=== PATIENT | female | born 1990 | race Caucasian/White ===

== ENCOUNTER 2018-01-10 07:12 | Emergency (ER) | payer OTHER, SELFPAY ==
[2018-01-10 07:20] VITALS: BP 130/70; PULSE 77; RESP 16; TEMP 36.5; O2SAT 98
--- NOTE | 2018-01-10 07:37 | W.ED.GENAD ---
Discharge Plan Disposition Patient Disposition: HOME Condition: Good Discharge Details Chief Complaint: DentalOral Clinical Impression: Aphthous stomatitis Primary Care Provider: Jeff Ruelas ED Provider: Roe Germain [place] Meds and New Rx's Prescriptions: New fluconazole [Diflucan] 100 mg tablet 100 mg PO DAILY Qty: 14 RF: 0 prednisone 10 mg tablet See Label Instructions .ROUTE .COMPLEX Qty: 21 RF: 0 Continue ibuprofen 200 MG tablet 600 mg PO TID PRNRF: 0 norgestimate-ethinyl estradiol [Tri-Sprintec (28)] 1 EACH tablet 1 tab PO DAILY RF: 0 Discharge Instructions Additional Instructions: Medication as prescribed. May dab viscous lidocaine on sores to help with mouth pain. May use Tylenol or Motrin for pain as well. Follow-up with primary care in the next few days if not getting better. Return to ED if inability to swallow, difficulty breathing, high fever, other concerns Referrals: Jeff Ruelas [Primary Care Provider] - Medical Decision Making Patient with recurrent aphthous ulcers involving the lips, gums and tongue. Everything is anterior. We will go ahead and start prednisone as this has worked up previously. We will also start her on Diflucan to help prevent thrush. We will give viscous lidocaine for the first couple of days to help with pain. Tylenol or Motrin as needed for pain. Follow-up with primary care in the next few days if not better. Return to ED if worse. HPI General Mode of arrival: ambulatory. Date/Time Provider Initiated Documentation: 01/10/18 07:27. Limitations to Documentation: no limitations. Information obtained by: patient. HPI Narrative: Patient presents to the ED for evaluation of mouth sores. Patient has had these previously. It is unclear why they occur so frequently. She has been seen at [facility]. Typically the only thing that works is steroids. She then has to take Diflucan as well because she develops thrush. This current round of sores started a couple of days ago. She has no difficulty or pain in the posterior oropharynx; everything is in the lips gums and tongue. She denies any fever. She denies any difficulty breathing. She is otherwise well with no significant past medical history. Related Data Home Medications Medication Instructions Recorded Confirmed ibuprofen 600 mg PO TID PRN 10/02/16 01/10/18 norgestimate-ethinyl estradiol 1 tab PO DAILY 10/02/16 01/10/18 [Tri-Sprintec (28)] fluconazole [Diflucan] 100 mg PO DAILY #14 tab 01/10/18 prednisone See Label Instructions .ROUTE 01/10/18 .COMPLEX #21 tab Previous Rx's Medication Instructions Recorded fluconazole [Diflucan] 100 mg PO DAILY #14 tab 01/10/18 prednisone See Label Instructions .ROUTE 01/10/18 .COMPLEX #21 tab Allergies Allergy/AdvReac Type Severity Reaction Status Date / Time codeine AdvReac Intermediate Nausea Unverified 01/10/18 07:25 General Stated Complaint: DentalOral CRISTIANO: 4 Review of Systems Constitutional Denies chills, Denies fever(s), Denies headache(s) and Denies malaise Eyes Denies change in vision, Denies eye discharge, Denies irritation and Denies eye pain ENT Denies dental pain, Denies otalgia, Denies facial pain, Denies headache(s), Reports lip swelling, Reports mouth lesions, Reports mouth pain, Denies nasal congestion, Denies nasal discharge, Denies neck pain, Denies odynophagia, Denies sinus pressure, Denies sore throat and Denies throat swelling Cardiovascular Denies dyspnea Respiratory Denies cough and Denies dyspnea Gastrointestinal Denies odynophagia Musculoskeletal Denies neck pain Neurologic Denies headache(s) Allergic/Immunologic Reports lip swelling and Denies throat swelling [facility] Social History Smoking/Tobacco Use Status: Current every day Exam Const General: cooperative, healthy appearing and comfortable Orientation: alert and oriented x3 [facility] Head: normocephalic and atraumatic Ears: external ears normal General nose exam: external nose normal and no nasal discharge Face and sinus: normal facial exam Mouth: moist mucous membranes, oral mucosa abnormal ulceration and tongue abnormal ulcerated Throat: posterior oropharynx normal Eyes Conjunctivae: conjunctivae normal Sclera: sclerae normal Pupils: PERRL EOM: EOM intact bilaterally Neck Neck: normal visual inspection, full ROM, trachea midline, supple and lymphadenopathy Neuro General: alert, oriented x3, gait normal, no focal motor deficits and CN's II-XI intact bilaterally Sensory Exam: no sensory deficits noted Course Vital Signs Temperature 97.7 F 01/10/18 07:20 Pulse 77 01/10/18 07:20 Respiratory Rate 16 01/10/18 07:20 Blood Pressure 130/70 01/10/18 07:20 Pulse Oximetry 98 01/10/18 07:20 Temperature 97.7 F 01/10/18 07:20 Temperature Source Temporal Artery Scan 01/10/18 07:20 Pulse 77 01/10/18 07:20 Respiratory Rate 16 01/10/18 07:20 Respiratory Effort Non-Labored 01/10/18 07:23 Blood Pressure 130/70 01/10/18 07:20 Blood Pressure Position Sitting 01/10/18 07:20 Pulse Oximetry 98 01/10/18 07:20 Oxygen Delivery Method Room Air 01/10/18 07:20 Oxygen Flow Rate 0 01/10/18 07:20 Pain Level 8 01/10/18 07:26
[2018-01-10] MEDS: predniSONE 20 MG TAB 60 MG PO (07:39)
--- NOTE | 2018-01-10 07:40 | ED.GENADUL_ITS ---
Discharge Plan Disposition Patient Disposition: HOME Condition: Good Discharge Details Chief Complaint: DentalOral Clinical Impression: Aphthous stomatitis Primary Care Provider: Jeff Ruelas ED Provider: Roe Germain [place] Meds and New Rx's Prescriptions: New fluconazole [Diflucan] 100 mg tablet 100 mg PO DAILY Qty: 14 RF: 0 prednisone 10 mg tablet See Label Instructions .ROUTE .COMPLEX Qty: 21 RF: 0 Continue ibuprofen 200 MG tablet 600 mg PO TID PRNRF: 0 norgestimate-ethinyl estradiol [Tri-Sprintec (28)] 1 EACH tablet 1 tab PO DAILY RF: 0 Discharge Instructions Additional Instructions: Medication as prescribed. May dab viscous lidocaine on sores to help with mouth pain. May use Tylenol or Motrin for pain as well. Follow-up with primary care in the next few days if not getting better. Return to ED if inability to swallow, difficulty breathing, high fever, other concerns Referrals: Jeff Ruelas [Primary Care Provider] - Medical Decision Making Patient with recurrent aphthous ulcers involving the lips, gums and tongue. Everything is anterior. We will go ahead and start prednisone as this has worked up previously. We will also start her on Diflucan to help prevent thrush. We will give viscous lidocaine for the first couple of days to help with pain. Tylenol or Motrin as needed for pain. Follow-up with primary care in the next few days if not better. Return to ED if worse. HPI General Mode of arrival: ambulatory . Date/Time Provider Initiated Documentation: 01/10/18 07:27 . Limitations to Documentation: no limitations . Information obtained by: patient . HPI Narrative: Patient presents to the ED for evaluation of mouth sores. Patient has had these previously. It is unclear why they occur so frequently. She has been seen at [facility]. Typically the only thing that works is steroids. She then has to take Diflucan as well because she develops thrush. This current round of sores started a couple of days ago. She has no difficulty or pain in the posterior oropharynx; everything is in the lips gums and tongue. She denies any fever. She denies any difficulty breathing. She is otherwise well with no significant past medical history. Related Data Home Medications Medication Instructions Recorded Confirmed ibuprofen 600 mg PO TID PRN 10/02/16 01/10/18 norgestimate-ethinyl estradiol 1 tab PO DAILY 10/02/16 01/10/18 [Tri-Sprintec (28)] fluconazole [Diflucan] 100 mg PO DAILY #14 tab 01/10/18 prednisone See Label Instructions .ROUTE 01/10/18 .COMPLEX #21 tab Previous Rx's Medication Instructions Recorded fluconazole [Diflucan] 100 mg PO DAILY #14 tab 01/10/18 prednisone See Label Instructions .ROUTE 01/10/18 .COMPLEX #21 tab Allergies Allergy/AdvReac Type Severity Reaction Status Date / Time codeine AdvReac Intermediate Nausea Unverified 01/10/18 07:25 General Stated Complaint: DentalOral CRISTIANO: 4 Review of Systems Constitutional Denies chills, Denies fever(s), Denies headache(s) and Denies malaise Eyes Denies change in vision, Denies eye discharge, Denies irritation and Denies eye pain ENT Denies dental pain, Denies otalgia, Denies facial pain, Denies headache(s), Reports lip swelling, Reports mouth lesions, Reports mouth pain, Denies nasal congestion, Denies nasal discharge, Denies neck pain, Denies odynophagia, Denies sinus pressure, Denies sore throat and Denies throat swelling Cardiovascular Denies dyspnea Respiratory Denies cough and Denies dyspnea Gastrointestinal Denies odynophagia Musculoskeletal Denies neck pain Neurologic Denies headache(s) Allergic/Immunologic Reports lip swelling and Denies throat swelling [facility] Social History Smoking/Tobacco Use Status: Current every day Exam Const General: cooperative, healthy appearing and comfortable Orientation: alert and oriented x3 [facility] Head: normocephalic and atraumatic Ears: external ears normal General nose exam: external nose normal and no nasal discharge Face and sinus: normal facial exam Mouth: moist mucous membranes, oral mucosa abnormal ulceration and tongue abnormal ulcerated Throat: posterior oropharynx normal Eyes Conjunctivae: conjunctivae normal Sclera: sclerae normal Pupils: PERRL EOM: EOM intact bilaterally Neck Neck: normal visual inspection, full ROM, trachea midline, supple and lymphadenopathy Neuro General: alert, oriented x3, gait normal, no focal motor deficits and CN's II- XI intact bilaterally Sensory Exam: no sensory deficits noted Course Vital Signs Temperature 97.7 F 01/10/18 07:20 Pulse 77 01/10/18 07:20 Respiratory Rate 16 01/10/18 07:20 Blood Pressure 130/70 01/10/18 07:20 Pulse Oximetry 98 01/10/18 07:20 Temperature 97.7 F 01/10/18 07:20 Temperature Source Temporal Artery Scan 01/10/18 07:20 Pulse 77 01/10/18 07:20 Respiratory Rate 16 01/10/18 07:20 Respiratory Effort Non-Labored 01/10/18 07:23 Blood Pressure 130/70 01/10/18 07:20 Blood Pressure Position Sitting 01/10/18 07:20 Pulse Oximetry 98 01/10/18 07:20 Oxygen Delivery Method Room Air 01/10/18 07:20 Oxygen Flow Rate 0 01/10/18 07:20 Pain Level 8 01/10/18 07:26
[2018-01-10] MEDS: Lidocaine 2% Viscous 15 ML CUP PO (07:45)
[2018-01-10] MEDS: Fluconazole 100 MG TAB PO (07:45)
== END 2018-01-10 08:03 | disposition home or self-care (01) ==
PROVIDERS: Emergency Provider Emergency Medicine; PCP Family Medicine
DX: K12.0 Recurrent oral aphthae (principal)
CPT/HCPCS: 99283; J7512

== ENCOUNTER 2021-08-08 03:13 | Outpatient (CLI) | payer OTHER, BC, SELFPAY ==
[2021-08-08 08:55] LABS: HCT 42.8 % (36.0-46.0); HGB 14.6 g/dL (11.2-15.7); MCH 33.7 pg (27.0-33.0); MCHC 34.1 % (32.0-36.0); MCV 98.8 fL (80-95); MPV 8.9 fL (8.0-11.0); Platelet Count 359 10^3/uL (130-400); RBC 4.33 10^6/uL (3.93-5.22); RDW-SD 44.1 fL; WBC 9.95 10^3/uL (4.4-10.8)
[2021-08-08 08:57] LABS: Bilirubin Negative (Negative); Blood Trace-intact (Negative); Clarity Sl Cloudy (Clear); Glucose Negative (Negative); Ketones Negative (Negative); Leukocyte Esterase Negative (Negative); Nitrite Negative (Negative); Specific Gravity >= 1.030 (1.005-1.025); Urobilinogen 0.2 EU/dL (Up TO 0.2)
[2021-08-08 09:03] LABS: Bacteria Rare HPF (Negative); C & S Indicated? No/Sq. Contamination; Casts Negative LPF (Negative); Crystals Negative HPF (Negative); Epithelial Cells Many HPF (Negative); Mucus Trace (Negative); WBC 0-2 HPF (0-5)
[2021-08-08 09:57] LABS: *AMPHETAMINES SCREEN URINE Positive (Negative); *BARBITURATES SCREEN URINE Negative (Negative); *BENZODIAZEPINES SCREEN URINE Negative (Negative); Cannabinoids THC Negative (Negative); Cocaine Screen,Urine Negative (Negative); METHADONE URINE SCREEN Negative (Negative); OPIATES URINE SCREEN Negative (Negative)
[2021-08-08 10:00] LABS: Tricyclic Antidepressants Negative (Negative)
[2021-08-08 10:24] LABS: Vitamin D 25 Total 31.1 ng/mL (30-100)
[2021-08-08 10:28] LABS: HCG Quant, Pregnancy 12286 mIU/mL (1-3)
[2021-08-09 09:49] LABS: Hepatitis B Surface Ag Negative (Negative)
[2021-08-09 10:19] LABS: Hepatitis C Ab w Rflx HCV PCR Negative (Negative)
[2021-08-09 10:28] LABS: HIV-1/2 Ag & Ab Screen Negative (Negative)
[2021-08-09 10:35] LABS: Rubella IgG Ab (UVM) Positive (See Note)
[2021-08-09 15:03] LABS: Chlamydia Result Negative (Negative); GC Result Negative (Negative)
[2021-08-09 20:07] LABS: Syphilis IgG w/Reflex Nonreactive (Nonreactive)
== END 2021-08-08 03:14 | disposition home or self-care (01) ==
LOC: LBO 03:14
PROVIDERS: Visit Provider Family Medicine
DX: N96 Recurrent pregnancy loss (principal); Z34.90 Encounter for supervision of normal pregnancy, unspecified, unspecified trimester
CPT/HCPCS: 36415; 80307; 82306; 85027; 86803; 86850; 86900; 86901; 87340; 87389; 87491; 87591; 81003; 81015; 84702; 85025; 86762; 86765; 86780

== ENCOUNTER 2021-10-13 22:15 | Observation (INO) | payer OTHER, MEDICAID, SELFPAY ==
[2021-10-13 22:31] VITALS: BP 174/137; PULSE 97; RESP 18; TEMP 36.3; O2SAT 99
[2021-10-13 22:50] LABS: Abs Immature Grans 0.02 10^3/uL (0.0-0.06); Absolute Basophil Count 0.04 10^3/uL (0.0-0.2); Absolute Eosinophil Count 0.13 10^3/uL (0.0-0.7); Absolute Lymphocyte Count 3.02 10^3/uL (1.2-3.4); Absolute Monocyte Count 0.91 10^3/uL (0.1-0.8); Absolute Neutrophil Count 5.71 10^3/uL (1.2-6.7); Basophils % 0.4; Eosinophils % 1.3; HCT 36.3 % (36.0-46.0); HGB 12.5 g/dL (11.2-15.7); Immature Grans % 0.2; Lymphocytes % 30.7; MCH 33.7 pg (27.0-33.0); MCHC 34.4 % (32.0-36.0); MCV 98 fL (80-95); MPV 8.9 fL (8.0-11.0); Monocytes % 9.3; Neutrophils % 58.1; Platelet Count 283 10^3/uL (130-400); RBC 3.71 10^6/uL (3.93-5.22); RDW-SD 43.5 fL; WBC 9.83 10^3/uL (4.4-10.8)
[2021-10-13] MEDS: LORazepam 2 MG/ML VIAL 1 MG IVP (22:56)
[2021-10-13] MEDS: Ketorolac 15 MG/ML VIAL IVP (22:58)
[2021-10-13 23:13] LABS: ALT 28 U/L (14-59); AST 28 U/L (15-37); Albumin 3.5 g/dL (3.4-5.0); Alkaline Phosphatase 84 U/L (46-116); Anion Gap 7.5 mmol/L (3-11); BUN 20 mg/dL (7-18); Bilirubin, Total 0.4 mg/dL (0.2-1.0); CO2 27.5 mmol/L (21.0-32.0); CREATININE 0.8 mg/dL (0.55-1.02); Calcium 8.5 mg/dL (8.5-10.1); Chloride 103 mmol/L (98-107); Glucose 91 mg/dL (74-106); HCG Quant, Pregnancy 77 mIU/mL (1-3); Sodium 138 mmol/L (136-145)
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
[2021-10-13] MEDS: ACETAMINOPHEN 1,000 MG/100 ML BTL 400 MG IVPB (23:43)
--- NOTE | 2021-10-13 23:45 | DI.CT_ITS ---
Exam(s) CT ABDOMEN PELVIS W EXAM: CT ABDOMEN PELVIS W CLINICAL HISTORY: recent miscarriage, severe lower abd pain. TECHNIQUE: Imaging Protocol: Axial computed tomography images with coronal and sagittal reformatted images were created and reviewed CONTRAST MATERIAL: Intravenous: Omnipaque 100cc Oral: None COMPARISON: CT RENAL COLIC WO CONTRAST from 10/02/2016 FINDINGS: VISUALIZED LUNG BASES: No nodules nor pleural effusions evident. ABDOMEN: There is no ascites. LIVER: There are no focal hepatic lesions evident . GALLBLADDER/BILIARY: No obvious gallbladder pathology. CBD is not dilated. PANCREAS: No evidence of pancreatic mass nor dilatation of the pancreatic duct. SPLEEN: Spleen is not enlarged. No obvious intrasplenic lesions. Splenic and portal veins are paten t. ADRENALS: There are no significant adrenal masses. KIDNEYS:No cysts evident. No solid renal masses. No calculi nor hydronephrosis.. ABDOMINAL AORTA: Abdominal aorta is not enlarged. LYMPH NODES:There is no retroperitoneal nor paraaortic adenopathy. ABDOMINAL WALL: No evidence of significant anterior abdominal wall nor inguinal hernia. GI: There is no evidence of bowel obstruction, free air, nor abscess. PELVIS: GI: No evidence of appendicitis.No evidence of sigmoid diverticulitis. LYMPH NODES: There is no intrapelvic nor inguinal adenopathy. REPRODUCTIVE: Uterine cavity is distended with fluid, indicating an element of cervical stenosis URINARY BLADDER: No calculi nor obvious masses evident OSSEOUS: No significant osseous lesions. No fractures. IMPRESSION: 1. The main finding here is a large amount of fluid filling the entire endometrial cavity, suggesting presence of cervical stenosis. Recommend gynecology consultation. 2. Mild ileus pattern. No obvious bowel obstruction. No ascites. 3. No evidence of appendicitis. No diverticulitis RADIATION DOSE DELIVERED: 950.27mGy.cm Total DLP DATA REPOSITORY: All CT scans at this facility are submitted to the National Radiology Data Registry (NRDR) Dose Index Registry (DIR) with the [employer] (ACR). RADIATION OPTIMIZATION: All CT scans at this facility use at least one of these dose optimization te chniques: automated exposure control; mA and/or kV adjustment per patient size (includes targeted exa ms where dose is matched to clinical indication); or iterative reconstruction.
[2021-10-13] MEDS: Omnipaque 350 MG/ML 100 ML BTL IJ (23:52)
[2021-10-13] MEDS: Normal Saline Flush 10 ML SYR IVP (23:53)
[2021-10-14] MEDS: MORPHine 4 MG/ML SYR 2 MG IVP ×2 (00:23→01:04)
[2021-10-14] MEDS: Ondansetron 4 MG/2 ML VIAL IVP (00:23)
[2021-10-14 00:25] LABS: Bilirubin Negative (Negative); Blood Moderate (Negative); Clarity Clear (Clear); Glucose Negative (Negative); Ketones Trace mg/dL (Negative); Leukocyte Esterase Negative (Negative); Nitrite Negative (Negative); Specific Gravity 1.025 (1.005-1.025); Urobilinogen 0.2 EU/dL (Up TO 0.2); pH 6.5 (5-8)
[2021-10-14 00:30] VITALS: BP 150/85; PULSE 82; RESP 16; O2SAT 94
[2021-10-14 00:35] LABS: Bacteria Rare HPF (Negative); C & S Indicated? No; Casts Negative LPF (Negative); Crystals Negative HPF (Negative); Epithelial Cells Rare HPF (Negative); Mucus Trace (Negative); WBC 0-2 HPF (0-5)
--- NOTE | 2021-10-14 00:51 | DI.VRAD_ITS ---
PROCEDURE INFORMATION: Exam: CT Abdomen And Pelvis With Contrast Exam date and time: 10/14/2021 12:08 AM Age: 31 years old Clinical indication: Abdominal pain; Localized; Patient HX: Severe lower abd pain, recent miscarriage TECHNIQUE: Imaging protocol: Computed tomography of the abdomen and pelvis with contrast. Radiation optimization: All CT scans at this facility use at least one of these dose optimization techniques: automated exposure control; mA and/or kV adjustment per patient size (includes targeted exams where dose is matched to clinical indication); or iterative reconstruction. Contrast material: OMNIPAQUE 350; Contrast volume: 100 ml; Contrast route: IV; COMPARISON: CT RENAL COLIC WO CONTRAST 10/02/2016 10:29 PM FINDINGS: Liver: Normal. No mass. Gallbladder and bile ducts: Normal. No calcified stones. No ductal dilation. Pancreas: Normal. No ductal dilation. Spleen: Normal. No splenomegaly. Adrenal glands: Normal. No mass. Kidneys and ureters: Normal. No hydronephrosis. Stomach and bowel: There are multiple prominent nondilated air and fluid filled loops of small bowel without transition point which could represent mild ileus. There is no evidence for bowel inflammation. Appendix: The appendix is well visualized and appears normal. Intraperitoneal space: Unremarkable. No free air. No significant fluid collection. Vasculature: Unremarkable. No abdominal aortic aneurysm. Lymph nodes: Unremarkable. No enlarged lymph nodes. Urinary bladder: Unremarkable as visualized. Reproductive: There is a large amount of fluid within the endometrial cavity from the upper to the lower uterine segment, new since prior study, with the fluid demonstrating simple fluid attenuation. There appears to be some degree of thinning of the myometrium within the lower uterine segment, suggesting that this fluid is under pressure. The fluid measures 3.8 cm in transverse dimension, 9.3 in anterior posterior dimension and 3.2 cm in craniocaudal dimension. Findings suggest a small amount of enhancing tissue along the inferior edge of the endometrial fluid in the upper uterine segment, as seen on sagittal image 52, series 7, which could represent retained products of conception. There is a 1.9 x 2.3 cm cystic left adnexal lesion, likely a dominant ovarian follicle. Bones/joints: Unremarkable. No acute fracture. Soft tissues: Unremarkable. IMPRESSION: 1. Large amount of fluid within the endometrial cavity with associated thinning of the uterine myometrium in the lower uterine segment. There is also a small amount of enhancing tissue along the edge of the endometrial fluid in the upper uterine segment which could represent retained products of conception. Overall, findings suggest cervical stenosis in the setting of recent miscarriage. Recommend emergent consultation with gynecology service. 2. Multiple prominent nondilated loops of small bowel without transition point suggesting ileus. Findings were discussed with Wojciech Chance at 10/14/2021 12:46 AM EDT. Dictated and Authenticated by: Job Stephenson MD. Ordering:P.DISST Robson Jeffrey MD
[2021-10-14 01:06] LABS: Source Nasal/Nares
[2021-10-14 01:59] LABS: COVID-19 PCR Negative (Negative)
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
[2021-10-14 02:04] VITALS: BP 151/95; PULSE 79; RESP 16; O2SAT 95
[2021-10-14] MEDS: DOXYCYCLINE 100 MG in Normal Saline 100 ML IVPB (02:04)
[2021-10-14] MEDS: MORPHine 10 MG/ML VIAL 2 MG IVP (02:15)
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
[2021-10-14 02:36] VITALS: BMI 28.8
[2021-10-14] MEDS: Lactated Ringers 1,000 ML 30 ML IV (02:46)
--- NOTE | 2021-10-14 03:08 | POC_PTH ---
PATIENT: Eleonora Robertson LOC: OBS U#:[id number] AGE/SX: 31/F ROOM: OBS.306 RE10/14/[address]: Debbi Rodriguez DO : 1990 BED: A DIS: 10/14/2021 SPEC #: [id number] RECD: 10/15/21 09:25 STATUS: SOULeighann REQ #: [id number] ALLEN: 10/14/21 03:[address]: Debbi Rodriguez DEPT: Surgical Specimen RECD BY: Ana Luisa Saenz ENTERED: 10/15/21 09:26 SP TYPE: POC OTHR DR: Unknown,Unknown Tissues: 1 - INDUCED Procedures: GROSS AND MICRO LEVEL 4 Comments: [id number]
--- NOTE | 2021-10-14 03:21 | W.PM.OP ---
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 Upon dilation of the cervical, marked blood-tinged fluid spontaneously expelled from the uterus. Small amount of tissue returned from endometrial and endocervical curettage Procedure Description: After full informed consent was obtained, patient was taken the operating suite with an IV running. She was placed in dorsal supine position and general anesthesia administered with ease. She was then placed in the modified dorsolithotomy position and prepped and draped in the usual sterile fashion. Exam under anesthesia revealed a uterus that was approximately 10 to 12 weeks size and freely mobile. Speculum was then inserted and cervical dilated with Thomas dilators to the point that a 7 Macedonian suction catheter could be passed with ease. An Allis clamp was used to stabilize the cervix. With a suction curettage, moderate blood tinged fluid was withdrawn from the uterus. There was also a scant amount of tissue. A gentle sharp curettage of the entire endometrial endocervical canal produced a small amount of tissue, particularly from the lower uterine segment. This will be sent for pathology. A second pass of the suction curette was undertaken and the uterus was then found to be small, involuted, and approximately 6 weeks size. Tenaculum and speculum were both removed and the patient was returned to the dorsal supine position. She awoke from anesthesia with ease. She was taken the postoperative area in stable condition. Complications: None apparent Findings: Blood-tinged fluid collection within the endometrial canal. Scant products of conception particularly in the lower uterine segment Pathology: Products of conception for examination Fluids: Crystalloid per anesthesia EBL: 50 mL
[2021-10-14 03:25] VITALS: BP 110/62; BP 111/68; PULSE 72; PULSE 74; RESP 16; RESP 18
--- NOTE | 2021-10-14 03:32 | W.ANESPOSTOP ---
Postoperative Evaluation Date, Time and Location Date Performed: 10/14/21 Time Performed: 03:32 Patient Location: Obstetrics Vital Signs Most Recent Imported Vital Signs: Most Recent Vital Signs Temp Pulse Resp BP Pulse Ox 36.3 C L 79 16 151/95 H 95 10/13/21 22:31 10/14/21 02:04 10/14/21 02:04 10/14/21 02:04 10/14/21 02:04 Pain Score Most Recent Pain Score: Most Recent Pain Score Pain Level 5 10/14/21 02:47 Assessment Mental Status: Awake (Alert & Oriented to Patient Baseline) Airway and Respiratory Function: Patent airway with normal (patient baseline) respiratory exam Cardiovascular Function: Hemodynamically Stable Hydration Status: Adequately Hydrated Nausea & Vomiting: No Nausea or Vomiting Pain: Pain is tolerable per patient Peripheral Nerve Block: Patient did not receive a nerve block
[2021-10-14 05:00] VITALS: BP 103/56; PULSE 66; RESP 18; TEMP 36.6
[2021-10-14] MEDS: Doxycycline Hyclate 100 MG CAP 200 MG PO (06:20)
== END 2021-10-14 06:30 | disposition home or self-care (01) ==
LOC: ER 10-14 02:40 → OBS 10-14 03:21
PROVIDERS: Admitting Provider Obstetrics & Gynecology; Emergency Provider Emergency Medicine; Visit Provider Obstetrics & Gynecology
PROC: (CPT 59841; principal; 2021-10-14 02:25)
DX: O03.4 Incomplete spontaneous abortion without complication (principal); O43.891 Other placental disorders, first trimester; N96 Recurrent pregnancy loss; N85.7 Hematometra; F90.9 Attention-deficit hyperactivity disorder, unspecified type; F32.A Depression, unspecified; F41.1 Generalized anxiety disorder; F17.210 Nicotine dependence, cigarettes, uncomplicated; Z3A.09 9 weeks gestation of pregnancy
CPT/HCPCS: 59812; 80053; 86850; 86900; 86901; 87635; 88305; 96365; 96367; 96375; 96376; 99285; 74177; 81003; 81015; 84702; 85025; 88304; G0378; J0131; J1100; J1885; J2060; J2270; J2405; J3490

== ENCOUNTER 2021-10-24 18:44 | Outpatient (REF) | payer MEDICAID, SELFPAY ==
[2021-10-28 13:26] LABS: Chlamydia Result Negative (Negative); GC Result Negative (Negative)
== END 2021-10-24 18:45 | disposition home or self-care (01) ==
LOC: LBN 18:44
PROVIDERS: Visit Provider Obstetrics & Gynecology
DX: Z20.2 Contact with and (suspected) exposure to infections with a predominantly sexual mode of transmission (principal)
CPT/HCPCS: 87491; 87591

== ENCOUNTER 2021-12-26 13:49 | Emergency (ER) | payer OTHER, MEDICAID, SELFPAY ==
[2021-12-26] VITALS (37 sets, daily range): BP systolic 115–137; BP diastolic 66–100; PULSE 94–128; RESP 10–27; TEMP 36.9–38.6; O2SAT 95–99
--- NOTE | 2021-12-26 13:45 | RT.EKG_ITS ---
APPROVED REPORT Exam: Resting ECG Reason for Exam: tachycardia,chest pain Patient Location: E HR:103 bpm ECG Measurements Heart Rate 103 AXIS SD 148 P 75 QRSd 73 QRS 52 QT 343 T 48 QTc 449 Conclusion Sinus tachycardia...rate> 99. Sinus. Normal axis. No STEMI. I have reviewed and interpreted ECG and agree with software generated interpretation.
[2021-12-26 14:39] LABS: Abs Immature Grans 0.03 10^3/uL (0.0-0.06); Absolute Basophil Count 0.05 10^3/uL (0.0-0.2); Absolute Eosinophil Count 0.14 10^3/uL (0.0-0.7); Absolute Lymphocyte Count 2.57 10^3/uL (1.2-3.4); Absolute Monocyte Count 0.75 10^3/uL (0.1-0.8); Absolute Neutrophil Count 6.66 10^3/uL (1.2-6.7); Basophils % 0.5; Eosinophils % 1.4; HCT 39.2 % (36.0-46.0); HGB 13.5 g/dL (11.2-15.7); Immature Grans % 0.3; Lymphocytes % 25.2; MCH 33.1 pg (27.0-33.0); MCHC 34.4 % (32.0-36.0); MCV 96 fL (80-95); MPV 8.9 fL (8.0-11.0); Monocytes % 7.4; Neutrophils % 65.2; Platelet Count 327 10^3/uL (130-400); RBC 4.08 10^6/uL (3.93-5.22); RDW 11.1 % (11.7-14.6); RDW-SD 39.4 fL
[2021-12-26 15:04] LABS: ALT 27 U/L (14-59); AST 17 U/L (15-37); Albumin 3.8 g/dL (3.4-5.0); Alkaline Phosphatase 88 U/L (46-116); Anion Gap 7.2 mmol/L (3-11); BUN 15 mg/dL (7-18); Bilirubin, Total 0.3 mg/dL (0.2-1.0); CO2 26.8 mmol/L (21.0-32.0); CREATININE 0.8 mg/dL (0.55-1.02); Chloride 101 mmol/L (98-107); Estimated GFR 100.33 (mL/min/1.73m2); Glucose 77 mg/dL (74-106); Magnesium 1.8 mg/dL (1.8-2.4); Potassium 3.6 mmol/L (3.5-5.1); Sodium 135 mmol/L (136-145); Total Protein 7.6 g/dL (6.4-8.2)
[2021-12-26] MEDS: Normal Saline 1,000 ML 1000 ML IV (15:05)
[2021-12-26] MEDS: Acetaminophen 500 MG TAB 1000 MG PO (15:05)
[2021-12-26 15:06] LABS: Troponin I < 50 ng/L (<or=60)
[2021-12-26 15:12] LABS: Source Nasal/Nares
[2021-12-26 15:42] LABS: COVID-19 PCR Negative (Negative)
--- NOTE | 2021-12-26 15:45 | DI.RAD_ITS ---
Exam(s) XR PORTABLE CHEST AP EXAM: XR PORTABLE CHEST AP CLINICAL HISTORY: chest pain, shortness of breath TECHNIQUE: 2D digital imaging was performed of the chest. One image was obtained. An AP view was ob tained. COMPARISON: CR CHEST 2 VIEWS PA,LAT from 08/12/2014 FINDINGS: MEDIASTINUM: Normal. HEART: Normal. PULMONARY VASCULATURE: Normal. LUNGS: Clear. PLEURAL SPACE: No pleural effusion or pneumothorax. BONE:Within normal limits for the patient's age. OTHER FINDINGS:Normal. IMPRESSION: No acute pulmonary findings. DATA REPOSITORY: RADIATION DOSE DELIVERED:
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
--- NOTE | 2021-12-26 16:00 | RT.EKG_ITS ---
APPROVED REPORT Exam: Resting ECG Reason for Exam: chest pain Patient Location: E HR:96 bpm ECG Measurements Heart Rate 96 AXIS MO 124 P 65 QRSd 79 QRS 45 QT 348 T 43 QTc 441 Conclusion Sinus rhythm...normal P axis, V-rate 60- 99. Sinus. Normal axis. No STEMI. I have reviewed and interpreted ECG and agree with software generated interpretation.
--- NOTE | 2021-12-26 16:10 | ED.PROG_ITS ---
Date of service: 12/26/21 Time of Service: 16:10 Medical Decision Making Care assumed from provider (ANGELA Fletcher) Please see their initial HPI, PE, and documentation. Discussed patient details and case and pending workup and disposition. Patient is hemodynamically stable, and alert and oriented. 31-year-old female presents with tachycardia tachypnea and fever. At the time of signout D-dimer is pending, labs and chest x-ray. Patient is requesting some food. Initial troponin within normal limits. Urinalysis is pending. COVID is negative. D-dimer is 215, sodium 135, initial troponin within normal limits, urinalysis is within normal limits no evidence of UTI. 1706: Informed by field staff manager that patient was complaining of left arm tingling. UDS added onto urinalysis and 0.5 lorazepam ordered. This time we are pending second troponin. 1732: Patient is tearful, I did discuss with her that we are waiting a second troponin. I did relay the results of the largely unremarkable work-up thus far. She verbalizes understanding. She does appear anxious. 1819: Repeat Troponin WNL, Will discharge patient home. This text was generated using [employer] dictation system, please disregard any oddities of phrase or misspellings. Heart rate has improved upon discharge at 96. Discussed follow-up care and strict return instructions, verbalized understanding. Medical Records Medical records reviewed: Yes I reviewed the patient's medical records. Imaging Data Radiologic Study: Imaging: X-Ray Radiologist's impression: CLINICAL HISTORY: chest pain, shortness of breath TECHNIQUE: 2D digital imaging was performed of the chest. One image was obtained. An AP view was obtained. COMPARISON: CR CHEST 2 VIEWS PA,LAT from 08/12/2014 FINDINGS: MEDIASTINUM: Normal. HEART: Normal. PULMONARY VASCULATURE: Normal. LUNGS: Clear. PLEURAL SPACE: No pleural effusion or pneumothorax. BONE:Within normal limits for the patient's age. OTHER FINDINGS:Normal. IMPRESSION: No acute pulmonary findings. Lab Data Lab results reviewed: Yes I reviewed the patient's lab results. Labs: Laboratory Tests Range/Units 12/26/21 12/26/21 12/26/21 14:02 14:02 14:55 WBC (4.4-10.8) 10^3/uL 10.20 RBC (3.93-5.22) 10^6/uL 4.08 Hgb (11.2-15.7) g/dL 13.5 Hct (36.0-46.0) % 39.2 MCV (80-95) fL 96 H MCH (27.0-33.0) pg 33.1 H MCHC (32.0-36.0) % 34.4 RDW (11.7-14.6) % 11.1 L Plt Count (130-400) 10^3/uL 327 MPV (8.0-11.0) fL 8.9 Immature Gran % 0.3 Neutrophils % 65.2 Lymphocytes % 25.2 Monocytes % 7.4 Eosinophils % 1.4 Basophils % 0.5 Nucleated RBC % (0.0-0.3) % 0.0 Absolute Neutrophils (1.2-6.7) 10^3/uL 6.66 Absolute Lymphocytes (1.2-3.4) 10^3/uL 2.57 Absolute Monocytes (0.1-0.8) 10^3/uL 0.75 Absolute Eosinophils (0.0-0.7) 10^3/uL 0.14 Absolute Basophils (0.0-0.2) 10^3/uL 0.05 Sodium (136-145) mmol/L 135 L Potassium (3.5-5.1) mmol/L 3.6 Chloride (98-107) mmol/L 101 Carbon Dioxide (21.0-32.0) mmol/L 26.8 Anion Gap (3-11) mmol/L 7.2 BUN (7-18) mg/dL 15 Creatinine (0.55-1.02) mg/dL 0.8 Est GFR (CKD-EPI 2020) (mL/min/1.73m2) 100.33 Glucose (74-106) mg/dL 77 Calcium (8.5-10.1) mg/dL 9.0 Magnesium (1.8-2.4) mg/dL 1.8 Total Bilirubin (0.2-1.0) mg/dL 0.3 AST (15-37) U/L 17 ALT (14-59) U/L 27 Alkaline Phosphatase (46-116) U/L 88 Troponin I (<or=60) ng/L < 50 Total Protein (6.4-8.2) g/dL 7.6 Albumin (3.4-5.0) g/dL 3.8 COVID-19 Source Nasal/Nares SARS-CoV-2 (PCR) (Negative) Negative Sign Out Sign Out Data: Sign Out Comment: pending ddimer, urinalysis, repeat trop and ekg, fluids tylenol, dispo Last updated by Nerissa Escobar PA at 12/26/21 16:00 Discharge Plan Disposition Patient Disposition: HOME Condition: Stable Discharge Details Clinical Impression: Anterior chest wall pain Primary Care Provider: Unknown,Unknown ED Provider: Hemalatha Hartman Home Meds and New Rx's Prescriptions: Continued Gummy 400 mcg-35 mg -25 mg-5 mg tablet,chewable 1 tab PO DAILY dextroamphetamine-amphetamine [Adderall XR] 30 mg capsule,extended release 24hr 30 mg PO QAM dextroamphetamine-amphetamine [Adderall XR] 20 mg capsule,extended release 24hr 20 mg PO DAILY Rx Instructions: in afternoon metformin 500 mg tablet 500 mg PO BID venlafaxine 150 mg tablet extended release 24 hr 150 mg PO DAILY ibuprofen 800 mg tablet 800 mg PO Q8H PRNQty: 30 1RF Discharge Instructions Instructions: Chest Wall Pain (ED) Additional Instructions: At this time the cardiac work-up is within normal limits. There is no evidence for pneumonia, heart problems or any emergent condition. The labs show a slightly low sodium which we gave you sodium in the IV fluids that he received today. COVID swab is negative. Follow up with primary care provider in 3-5 days. Return to ED sooner if any worsening or concerns. Increase oral fluids. Please take Tylenol or Ibuprofen with food every 4-6 hours as needed for pain and swelling.
[2021-12-26 16:16] LABS: Bilirubin Negative (Negative); Blood Negative (Negative); Clarity Clear (Clear); Glucose Negative (Negative); Ketones Negative (Negative); Leukocyte Esterase Negative (Negative); Nitrite Negative (Negative); Urobilinogen 0.2 EU/dL (Up TO 0.2)
[2021-12-26 16:19] LABS: D-Dimer 215 ng/mlFEU (<500)
[2021-12-26] MEDS: LORazepam 20 MG/10 ML VIAL IVP (17:25)
[2021-12-26 17:47] LABS: Troponin I < 50 ng/L (<or=60)
[2021-12-26 19:04] LABS: *AMPHETAMINES SCREEN URINE Positive (Negative); *BARBITURATES SCREEN URINE Negative (Negative); *BENZODIAZEPINES SCREEN URINE Negative (Negative); Cannabinoids THC Negative (Negative); Cocaine Screen,Urine Negative (Negative); METHADONE URINE SCREEN Negative (Negative); OPIATES URINE SCREEN Negative (Negative)
[2021-12-26 19:11] LABS: Tricyclic Antidepressants Negative (Negative)
== END 2021-12-26 18:40 | disposition home or self-care (01) ==
PROVIDERS: Physician Assistant; Emergency Provider Registered Nurse Emergency
DX: R07.89 Other chest pain (principal); R00.0 Tachycardia, unspecified; R06.82 Tachypnea, not elsewhere classified; R50.9 Fever, unspecified; Z20.822 Contact with and (suspected) exposure to COVID-19; F17.290 Nicotine dependence, other tobacco product, uncomplicated
CPT/HCPCS: 36415; 80053; 80307; 81025; 87635; 93005; 96361; 96374; 99284; 71045; 81003; 83735; 84484; 85025; 85379; 93010; J3490

== ENCOUNTER 2022-04-15 14:46 | Emergency (ER) | payer MEDICAID, SELFPAY ==
[2022-04-15 14:49] VITALS: BP 136/95; PULSE 93; RESP 18; TEMP 36.9; O2SAT 99
[2022-04-15 15:39] LABS: Abs Immature Grans 0.02 10^3/uL (0.0-0.06); Absolute Basophil Count 0.05 10^3/uL (0.0-0.2); Absolute Eosinophil Count 0.14 10^3/uL (0.0-0.7); Absolute Lymphocyte Count 2.46 10^3/uL (1.2-3.4); Absolute Monocyte Count 0.85 10^3/uL (0.1-0.8); Absolute Neutrophil Count 6.96 10^3/uL (1.2-6.7); Basophils % 0.5; Eosinophils % 1.3; HCT 40.4 % (36.0-46.0); HGB 13.6 g/dL (11.2-15.7); Immature Grans % 0.2; Lymphocytes % 23.5; MCHC 33.7 % (32.0-36.0); MCV 95 fL (80-95); MPV 8.7 fL (8.0-11.0); Monocytes % 8.1; Neutrophils % 66.4; Platelet Count 350 10^3/uL (130-400); RBC 4.25 10^6/uL (3.93-5.22); RDW 11.9 % (11.7-14.6); RDW-SD 41.1 fL; WBC 10.48 10^3/uL (4.4-10.8)
[2022-04-15 15:55] LABS: Bilirubin Negative (Negative); Blood Negative (Negative); Clarity Sl Cloudy (Clear); Glucose Negative (Negative); Ketones Negative (Negative); Leukocyte Esterase Negative (Negative); Nitrite Negative (Negative); Specific Gravity >= 1.030 (1.005-1.025); Urobilinogen 0.2 EU/dL (Up TO 0.2); pH 6.5 (5-8)
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
[2022-04-15 15:59] LABS: Salicylate < 2.8 mg/dL (<2.8)
--- NOTE | 2022-04-15 16:00 | DI.CT_ITS ---
Exam(s) CT HEAD WO EXAM: CT HEAD WO CLINICAL HISTORY: New onset hallucinations. TECHNIQUE: Imaging Protocol: Axial computed tomography images with coronal and sagittal reformatted images were created and reviewed COMPARISON: No exams were available for comparison FINDINGS: There are no skull fractures. There is no fluid in the visualized paranasal sinuses. There is no evidence of intracranial hemorrhage, mass effect, or shift of midline structures. There are no extra-axial fluid collections. The ventricles are not enlarged or shifted and there is no blo od within the ventricular system nor within the basal cisterns. IMPRESSION: No acute intracranial findings on this noninfused CT scan of the brain. By myself to ER provider. RADIATION DOSE DELIVERED: 690.64mGy.cm Total DLP DATA REPOSITORY: All CT scans at this facility are submitted to the National Radiology Data Registry (NRDR) Dose Index Registry (DIR) with the [employer] (ACR). RADIATION OPTIMIZATION: All CT scans at this facility use at least one of these dose optimization te chniques: automated exposure control; mA and/or kV adjustment per patient size (includes targeted exa ms where dose is matched to clinical indication); or iterative reconstruction.
[2022-04-15 16:01] LABS: Acetaminophen < 2 ug/mL (10-30)
[2022-04-15 16:04] LABS: ALT 23 U/L (14-59); AST 17 U/L (15-37); Albumin 3.9 g/dL (3.4-5.0); Alkaline Phosphatase 85 U/L (46-116); Anion Gap 9.2 mmol/L (3-11); BUN 17 mg/dL (7-18); Bilirubin, Total 0.3 mg/dL (0.2-1.0); CO2 28.8 mmol/L (21.0-32.0); CREATININE 0.8 mg/dL (0.55-1.02); Calcium 8.9 mg/dL (8.5-10.1); Chloride 102 mmol/L (98-107); Estimated GFR 100.33 (mL/min/1.73m2); Glucose 84 mg/dL (74-106); Potassium 3.9 mmol/L (3.5-5.1); Sodium 140 mmol/L (136-145); Total Protein 7.6 g/dL (6.4-8.2)
[2022-04-15 16:16] LABS: ETHANOL BLOOD < 3.0 mg/dL (<10)
[2022-04-15 16:17] LABS: *AMPHETAMINES SCREEN URINE Positive (Negative); *BARBITURATES SCREEN URINE Negative (Negative); *BENZODIAZEPINES SCREEN URINE Negative (Negative); Cannabinoids THC Negative (Negative); Cocaine Screen,Urine Negative (Negative); METHADONE URINE SCREEN Negative (Negative); OPIATES URINE SCREEN Negative (Negative); Tricyclic Antidepressants Negative (Negative)
--- NOTE | 2022-04-15 16:24 | CMSP_ITS ---
- If Service Date Differs Date of service: 04/15/22 Time of Service: 16:24 Care Management Safety Plan Status: Interim - Reason for Wait Reason for Wait: Medical Clearance Chief Complaint: Eleonora presents in the ED for a psychiatric evaluation. She reports to ED staff that last evening the arch carmela Keith spoke to her through her . CM will respond to ED to assess patient after patient has been medically cleared and assessed by screener. If screener deems patient meets criteria for psychiatric stabilization CM will facilitate interdepartmental huddle with [facility] screener for safety planning considerations and meet with patient to review [facility] policy and safety plan, establish individual wishes for treatment and maintain patient rights. In the interim; please note safety plan below to guide patient care while awaiting further assessment in the ED. SAFETY PLAN: 1. Will remain on suicide precautions and in paper clothes. 2. Will remain in room under direct supervision of one-on-one staff at all times provided by CPSO, TOBACCO CONDITIONER, COSTUME MAKER art director. 3. May have paper cups, plates, finger foods as well as a cardboard spoon with which to eat meals. 4. Follow [facility] Management of the Admitted Behavioral Health Patient policy. 5. Personal care: Comfort bath system only at this time. 6. Bathroom privileges: with escort in ED. Available in room without limitation on Med/Surg. 6. No personal belongings at this time; per RN discretion. 7. Visitors: Per [facility] visitor policy and at RN discretion. 8. Phone contact limited to legal/family contact at RN discretion. 9. Activities: Soft cart activities, music tablet, television, and other activities at RN discretion. 10. Due to VOLUNTARY status, if patient wishes to leave [facility], staff will contact [facility] Crisis Screener ([phone]) and On-Call Technical Assistance Consultant ([phone]) as soon as possible. In the event of elopement, notify [facility] Police ([phone]). If deemed appropriate for inpatient psychiatric care, safety plan will be established with patient, and care team, to adhere to patient goals, identify restrictions based on behavioral status, address nutrition, and determine allowed personal belongings, tools for hygiene and personal care. As well plan will determine level of activity including ambulation, level of supervision, visitors, and determine privileges based on level of acuity, behaviors and level of engagement by patient.
[2022-04-15 19:14] LABS: Source Nasal/Nares
[2022-04-15 19:46] LABS: COVID-19 PCR Negative (Negative)
--- NOTE | 2022-04-15 20:48 | NUR.NOTE ---
Nursing Note: of PT called - PT requested NO information to be provided to other than her being on site; was advised that she was onsite, but no further infomation was provided, was upset he was unable to speak to PT, was again advised that he would not be able to speak with PT at this time. Call ended nothing further to report at this time
--- NOTE | 2022-04-16 00:18 | W.EDPROG ---
Date of service: 04/16/22 Time of Service: 00:19 Medical Decision Making pt voluntary for psychosis and delusions, no acute issues, resting in bed, will continue to monitor Sign Out Sign Out Data: Sign Out Comment: Delusional, receiving messages from the Kranthi Parker through her . Medically cleared, mental health evaluation completed, awaiting voluntary psychiatric placement Last updated by Connor Aguiar PA at 04/15/22 21:18 Discharge Plan Discharge Details Chief Complaint: PsychEval Clinical Impression: Delusions Primary Care Provider: Narda Gibson ED Provider: Keith Quiñonez Home Meds and New Rx's Prescriptions: No Action Gummy 400 mcg-35 mg -25 mg-5 mg tablet,chewable 1 tab PO DAILY dextroamphetamine-amphetamine [Adderall XR] 30 mg capsule,extended release 24hr 40 mg PO QAM dextroamphetamine-amphetamine [Adderall XR] 20 mg capsule,extended release 24hr 20 mg PO DAILY Rx Instructions: in afternoon ibuprofen 800 mg tablet 800 mg PO Q8H PRNQty: 30 1RF
[2022-04-16] MEDS: hydrOXYzine HCL 50 MG TAB PO (00:35)
--- NOTE | 2022-04-16 10:08 | PDOC.MHCN_ITS ---
Date of service: 04/16/22 Time of Service: 17:00 PHQ-9 Over the last 2 weeks, how often have you been bothered by any of the following problems? 1. Little interest or pleasure in doing things: not at all 2. Feeling down, depressed, or hopeless: several days 3. Trouble falling or staying asleep, or sleeping too much: nearly every day 4. Feeling tired or having little energy: nearly every day 5. Poor appetite or overeating: several days 6. Feeling bad about yourself - or that you are a failure or have let yourself and your family down: several days 7. Trouble concentrating on things, such as reading the newspaper or watching television: several days 8. Moving or speaking so slowly that other people could have noticed? - Or the opposite - being so fidgety or restless that you have been moving around a lot more than usual: not at all 9. Thoughts that you would be better off or of hurting yourself in some way: several days Total score: 11 PHQ-9 Results: Positive Source: Developed by Drs. Roe Souza, Lucia Barreto, Tk Pacheco and colleagues, with an educational bairon from [employer]. Suicide Severity Rate CSSRS Have you wished you were or wished you could go to sleep and not wake up?: Yes Have you actually had any thoughts of killing yourself?: No CSSRS3 Have you ever done anything, started to do anything or prepared to do anything to end your life?: Yes CSSRS4 Was this within the past three months?: No Screening Score Total Score: 4 Screening: Positive Mental Health Emergency Note Release [facility] release signed:: No Reason for Visit Eleonora presented to [facility] due to her recent delusions and hallucinations. In the last 2 weeks has the pt presented for ES prior to today?: No Client Information Client is: New Well Housed: Yes Non Suicidal Self Injury Current: No History: No Safety Risk/Harm to Self or Others Current Ideation to Harm Self or Others: No Risk: Does risk to harm exist?: No Risk: N/A Duty to warn indicated: No Asssessment/Mental Status Appearance: Unremarkable Attitude: Cooperative Behavior: Unremarkable Speech: Normal Affect: Cogruent with mood Mood: Stressed, Depressed and Anxious Hallucinations: yes, Visual and Auditory Delusions: yes, Restorationist Attention: Unremarkable Perception: Not impaired Orientation: Fully orientated Memory: Intact Insight: Fair Judgement: Fair Neurovegetative Symptoms Sleep: Increase Appetitie: No change Interests: No change Energy: No change Libido: Not applicable Substance Use: Do you use nicotine?: No Have you used substances in the last 7 days?: yes, Alcohol, Eleonora reports she binge drinks about 3x weekly. Eleonora reports she drinks 3 16oz 'man cans' that are 9% alcohol. Additional Issues: Assaultive/Threatening Behavior: No Medical Concerns: No Client engaged in active self harm w/weapon: No Threatening to run away: No Child reported abuse/neglect: No Voluntarily presenting for services: Yes Domestic violence is a concern: No Extreme Psychosis or extreme behavior is present: Yes Naya Crews was brought to the emergency room by her mother figure and her aunt. ON 04/14/21 Eleonora reports she spoke to Kaiden Parker through her . Eleonora reports that the Kaiden Combs makes her feel protected and continues to tell her you're not supposed to know everything yet. After this situation her took their children and left the home to protect their safety. Eleonora reports that she understands how it sounds to her family and states her family feels she has cracked a nut. Eleonora reports an increase in her sleep and reports she is constantly exhausted. Eleonora is not endorsing SI/HI/NSSI. Eleonora reports 6-7 years ago she attempted to overdose on medications because her boyfriend had cheated on her. Eleonora's family is concerned for her safety and due to the recent life changes, delusions, and hallucinations Eleonora is choosing to seek voluntary treatment. Resources Reosurces reviewed and given:: Crisis Bed Plan/Disposition Recommended Disposition: Hospitalization (Referrals are being sent now.) No. Plan: Eleonora will continue to wait at [facility] until placement is found. Person reported agreement to plan: Yes Facilities contacted if Applicable [facility] Not accepted, Only accepting in house referrals [facility] Not accepted, Only accepting in house referrals, Reports/communication Outcome discussed with: ED/Personnel
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
[2022-04-16 13:08] VITALS: BP 113/77; PULSE 77; TEMP 36.4; O2SAT 97
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
--- NOTE | 2022-04-16 15:25 | W.EDPROG ---
Date of service: 04/16/22 Time of Service: 15:25 Medical Decision Making Care was signed out by Dr. Quiñonez. Plan at signout: Patient awaiting placement in psychiatric treatment facility for psychosis. Patient has had no issues during my shift. Sign Out Sign Out Data: Sign Out Comment: Delusional, receiving messages from the Kranthi Parker through her . Medically cleared, mental health evaluation completed, awaiting voluntary psychiatric placement Last updated by Connor Aguiar PA at 04/15/22 21:18 Sign Out Comment: delusional, voluntary no issues overnight. Last updated by Keith Quiñonez MD at 04/16/22 01:26 Discharge Plan Discharge Details Chief Complaint: PsychEval Clinical Impression: Delusions Primary Care Provider: Narda Gibson ED Provider: Luis Sheffield Home Meds and New Rx's Prescriptions: No Action Gummy 400 mcg-35 mg -25 mg-5 mg tablet,chewable 1 tab PO DAILY dextroamphetamine-amphetamine [Adderall XR] 30 mg capsule,extended release 24hr 40 mg PO QAM dextroamphetamine-amphetamine [Adderall XR] 20 mg capsule,extended release 24hr 20 mg PO DAILY Rx Instructions: in afternoon ibuprofen 800 mg tablet 800 mg PO Q8H PRNQty: 30 1RF hydroxyzine HCl 50 mg Tablet 50 mg PO QHS PRN
--- NOTE | 2022-04-16 17:25 | PDOC.MHPN2 ---
Date of service: 04/16/22 Time of Service: 17:25 PHQ-9 Over the last 2 weeks, how often have you been bothered by any of the following problems? 1. Little interest or pleasure in doing things: not at all 2. Feeling down, depressed, or hopeless: several days 3. Trouble falling or staying asleep, or sleeping too much: nearly every day 4. Feeling tired or having little energy: nearly every day 5. Poor appetite or overeating: several days 6. Feeling bad about yourself - or that you are a failure or have let yourself and your family down: several days 7. Trouble concentrating on things, such as reading the newspaper or watching television: several days 8. Moving or speaking so slowly that other people could have noticed? - Or the opposite - being so fidgety or restless that you have been moving around a lot more than usual: not at all 9. Thoughts that you would be better off or of hurting yourself in some way: several days Total score: 11 PHQ-9 Results: Positive Source: Developed by Drs. Roe Suoza, Lucia Barreto, Tk Pacheco and colleagues, with an educational bairon from [employer]. Suicide Severity Rate CSSRS Have you wished you were or wished you could go to sleep and not wake up?: Yes Have you actually had any thoughts of killing yourself?: No CSSRS3 Have you ever done anything, started to do anything or prepared to do anything to end your life?: Yes CSSRS4 Was this within the past three months?: No Screening Score Total Score: 4 Screening: Positive Mental Health Emergency Note Release [facility] release signed:: Yes Reason for Visit Client is being reassessed today after arriving at [facility] on 04.15.2021 presenting with hallucinations and delusions. She is not presenting as experiencing any of this at the time of this assessment however, did talk about how her psyche manifested an arch angle to protect me. She was tearful through this disclosure. In the last 2 weeks has the pt presented for ES prior to today?: Unknown Client Information Client is: New Well Housed: Yes Non Suicidal Self Injury Current: No History: No Safety Risk/Harm to Self or Others Current Ideation to Harm Self or Others: No Risk: Does risk to harm exist?: yes. Access to means: No. Risk: Moderate Risk Duty to warn indicated: No Asssessment/Mental Status Appearance: Disheveled Attitude: Cooperative Behavior: Agitated Speech: Normal and Soft Affect: Cogruent with mood Mood: Sad, Stressed, Depressed and Anxious Thought process: Unremarkable Hallucinations: No evidence Delusions: No evidence Attention: Unremarkable Perception: Not impaired Orientation: Fully orientated Memory: Intact Insight: Good Judgement: Fair Neurovegetative Symptoms Sleep: Decrease Appetitie: Decrease Interests: Decrease Energy: Decrease Libido: Not applicable Substance Use: Do you use nicotine?: Yes Have you used substances in the last 7 days?: No Additional Issues: Assaultive/Threatening Behavior: No Medical Concerns: No Client engaged in active self harm w/weapon: No Threatening to run away: No Child reported abuse/neglect: No Voluntarily presenting for services: Yes Domestic violence is a concern: No Extreme Psychosis or extreme behavior is present: No Impression Eleonora is a 31 year old, female who lives in [facility]. 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 She then became tearful about her relationship with her who she described to be controlling, and enjoys to publicly shame her when she is not feeling the best or has done something that he perceives as wrong. He does this by calling her father who will call everyone he knows and then her phone blows up with more calls some with concern and others also shaming. As a result she reported my psyche manifested this arch angle to protect myself as she believed the carmela was speaking to her though her . She wanted some of her things from home and her brought those in. In between her calling her and him coming in this clinician learned that the had filed a restraining order on her and this was not shared to this clinician by ED staff when we spoke about her calling her . Subsequently per report of the care manger the clients was able to prove that the restraining order was not upheld so a visit was allowed at the clients request but closely monitored. Plan/Disposition Recommended Disposition: Hospitalization facilities contacted. Plan: [facility]. She agreed to meet with a territory representative from [facility] today at the ED. Person reported agreement to plan: Yes Facilities contacted if Applicable [facility] Accepted, Accepted/transfer pending. [facility]: Referral Reports/communication Outcome discussed with: ED/Personnel
--- NOTE | 2022-04-16 17:28 | NUR.NOTE ---
This nurse called the number listed in the chart for Lamin (). A male person answered who stated he was not Lamin. This nurse asked to speak with Lamin and was told I told you I'm not him. No number listed for mother. Nursing Note:
== END 2022-04-16 17:43 ==
PROVIDERS: Nurse Practitioner Family; Physician Assistant; Emergency Provider Emergency Medicine; PCP Family Medicine
DX: F22 Delusional disorders (principal); F32.A Depression, unspecified; F90.9 Attention-deficit hyperactivity disorder, unspecified type; Z20.822 Contact with and (suspected) exposure to COVID-19
CPT/HCPCS: 36415; 80053; 80307; 81025; 87635; 99285; 70450; 80320; 80329; 81003; 84443; 85025; J3490